=== PATIENT | male | born 1955 ===

== ENCOUNTER 2018-04-14 19:28 | Inpatient (IN) | payer MEDICARE, MEDICAID ==
[~2018-04-14] VITALS: Ht 190.5 cm; Wt 87.5 kg
--- NOTE | 2018-04-14 20:05 | NUR ---
Pt was transferred from [facility] for 5150. Pt complains of being depressed and wanting to hurt himself. Pt has hx of SI by cutting self x2. Pt has hx of ETOH abuse. Last drink was 12 hours ago. Pt has hx of ETOH withdrawal, sz. Pt stated that he usually takes Librium to prevent withdrawal. Made aware. Sz precautions in place. Wound and redness to coccyx, R second and middle toe noted. Pt alert, oriented x3. No sob noted. No s/sx of distress noted. Resp even and unlabored. Follows commands. Anxious. Call light within reach. Will cont to monitor. Addendum: 04/14/18 at 2108 by MIGUEL Pt plans to shoot himself.
[2018-04-14] MEDS ORDERED: IBUPROFEN 600 MG TABLET ONE (20:13)
[2018-04-14] MEDS ORDERED: LORAZEPAM 1 MG TABLET ONE (20:13)
[2018-04-14] MEDS ORDERED: IBUPROFEN 600 MG TABLET PO ONE (20:15)
[2018-04-14] MEDS ORDERED: LORAZEPAM 0.5 MG TABLET PO ONE (20:15)
[2018-04-14 20:23] LABS: BASOPHILS # (AUTO) 0.1 K/uL (0.0-8.0); BASOPHILS % (AUTO) 1.1 % (0.0-2.0); EOSINOPHILS # (AUTO) 0.2 K/uL (0.0-0.7); EOSINOPHILS % (AUTO) 3.7 % (0.0-7.0); HEMATOCRIT 36.8 % (36.7-47.1); HEMOGLOBIN 12.6 g/dL (12.5-16.3); LYMPHOCYTES # (AUTO) 1.3 K/uL (20.0-40.0); MEAN CORPUSCULAR HEMOGLOBIN 31.4 uug (23.8-33.4); MEAN CORPUSCULAR HGB CONC 34 g/dL (32.5-36.3); MEAN CORPUSCULAR VOLUME 92.1 fL (73.0-96.2); MONOCYTES # (AUTO) 0.6 K/uL (2.0-10.0); MONOCYTES % (AUTO) 11.1 % (0.0-11.0); NEUTROPHILS # (AUTO) 3.3 K/uL (1.8-8.9); NEUTROPHILS % (AUTO) 60.1 % (38.5-71.5); PLATELET COUNT (AUTO) 150 K/uL (152-348); WHITE BLOOD COUNT (AUTO) 5.4 K/uL (3.6-10.2)
[2018-04-14] MEDS ORDERED: GABA-534 PO (20:26)
[2018-04-14] MEDS ORDERED: DULO60CA45 PO (20:26)
[2018-04-14] MEDS ORDERED: LEVO25TA2 PO (20:26)
[2018-04-14] MEDS ORDERED: AMLO5TAB4 PO (20:26)
[2018-04-14 20:34] LABS: ALANINE AMINOTRANSFERASE 26 U/L (16-63); ALKALINE PHOSPHATASE 90 U/L (50-136); ASPARTATE AMINOTRANSFERASE 30 U/L (15-37); BILIRUBIN,DIRECT 0.3 mg/dL (0.0-0.2); BILIRUBIN,TOTAL 1.1 mg/dL (0.2-1.0); CARBON DIOXIDE 30 mmol/L (21-32); CHLORIDE 102 mmol/L (98-107); CREATININE 0.8 mg/dL (0.6-1.3); GLUCOSE 102 mg/dL (74-106); POTASSIUM 3.3 mmol/L (3.5-5.1)
[2018-04-14 20:38] LABS: ETHANOL < 3 MG/DL (0-0)
[2018-04-14 20:39] LABS: ACETAMINOPHEN < 2.0 ug/mL (10-30); UREA NITROGEN, BLOOD 7 mg/dL (7-18)
--- NOTE | 2018-04-14 21:07 | NUR ---
Pt is sleeping at this time. Will cont to monitor.
[2018-04-14] MEDS ORDERED: POTASSIUM CHLORIDE 10 MEQ TAB.PRT.SR PO ONE (21:30)
[2018-04-14] MEDS ORDERED: POTASSIUM CHLORIDE 20 MEQ TAB.PRT.SR ONE (21:38)
--- NOTE | 2018-04-14 21:58 | NUR ---
Attempted to call report. Receiving nurse will call back in 5 mins.
--- NOTE | 2018-04-14 22:30 | NUR ---
Report given LISBETH Beauchamp
--- NOTE | 2018-04-14 22:53 | NUR ---
Pt. admitted to psych , under care of Dr. Estrada Belongs List completed
[2018-04-14] MEDS ORDERED: MAG HYDROX/AL HYDROX/SIMETH 30 ML LIQUID UDC PO PRN (23:30)
[2018-04-14] MEDS ORDERED: LORAZEPAM 1 MG TABLET PO PRN (23:30)
[2018-04-14] MEDS ORDERED: ACETAMINOPHEN 325 MG TABLET PO PRN (23:30)
[2018-04-14] MEDS ORDERED: MAGNESIUM HYDROXIDE 30 ML LIQUID UDC PO PRN (23:30)
--- NOTE | 2018-04-14 23:30 | NUR ---
Admission Note: 62 y.o. male bib ER staff to MHU via allen from [facility]. Pt admitted on a 5150 for DTS. According to the Hold, Pt has a long history of PTSD, depression, and ETOH abuse. Pt is depressed with hopelessness, worthlessness, poor sleep, energy, and concentration. Pt still having regular trauma-related nightmares and flash backs. Endorses 2 previous suicide attempts by cutting himself. Pt has a current plan to steal a friend's gun and shooting himself. Upon face to face assessment, Pt agrees with, and also appears to reflect what is written on the Hold. Advisement and Patient Rights handbook given to Pt. A+Ox3 upon admission to MHU. Pt reports current suicidal thoughts and with the above-stated plan due to "unmanageable anxiety and depression." Reports a 30 year h/o ETOH abuse, drinking "3-5 quarts" daily, with 2-6 month episodes of sobriety. States he was kicked out of [employer] for "falling off the wagon," and became increasingly depressed and suicidal after living on the streets for "2 or 3 weeks." Pt states he has no family, no social support, and has very little money. Reports 10/10 anxiety, and states he feels helpless and hopeless. Exhibits blunted affect, garbled speech, and is circumstantial in thought process. Denies AH/VH. Reports smoking 5-6 cigarettes daily, nicotine patch ordered. Belongings inventoried and placed in unit locker. Pt cooperative with admission process, signed all paperwork. Skin assessment completed with RN and one male staff present. Abrasions noted to 2nd and 3rd (R) toes, (R) knee scab, and open sacral wound-photos taken and placed in chart, wound consult ordered. Pt oriented to the unit and his room, educated on unit rules and expectations, safety emphasized. Dr Estrada and Sunshine notified of admission, orders received, medications to be reconciled. In no acute physical distress.
[2018-04-15 07:30] VITALS: BP 165/85
[2018-04-15] MEDS: NICOTINE 7 MG/24HR PATCH TD SCH (11:29)
[2018-04-15] MEDS: DULOXETINE 30 MG CAPSULE.DR PO SCH ×2 (13:42→17:15)
[2018-04-15] MEDS: GABAPENTIN 300 MG CAPSULE PO SCH ×2 (13:42→17:15)
[2018-04-15 15:40] VITALS: BP 154/58
--- NOTE | 2018-04-15 18:22 | NUR ---
PATIENT IN ROOM MOST OF SHIFT AND SLEEPING AETING MEALS PARTIALLY, NO BEHAVIOR PROBLEMS, PATIENT C/O NAUSEA MEDICATED WITH MAALOZ 30CC WITH GOOD RESULTS AFTER , DENIED S.I CONTINUE TO MONITOR FOR SAFETY
[2018-04-15 19:30] VITALS: BP 145/68
--- NOTE | 2018-04-15 19:35 | NUR ---
RECEIVED PATIENT IN HIS ROOM, IN BED ASLEEP BUT EASILY AROUSABLE. HE IS NOTED A/O X 4. HE SI ABLE TO AMBULATE WITH STEADY GAIT AND ABLE TO MAKE HIS NEEDS KNOWN. UPON INTERVIEW, PATIENT REPORTED THAT HE CONTINUE HAVING SI WITH A PLAN TO STEAL FRIEND'S GUN AND SHOT SELF. PATIENT DENIES OWNING A GUN HIMSELF. PATIENT NOTED WITH LOW MOOD, WITHDRAWN, SAD FACE. PT ABLE VERBALIZED FEELINGS AND ABLE TO CFS. PT WAS REASSURED AND REDIRECTED. SAFETY EMPHASIS, WILL CONTINUE TO MONITOR CLOSELY.
[2018-04-16] MEDS: LEVOTHYROXINE SODIUM 25 MCG TABLET PO SCH (06:18)
--- NOTE | 2018-04-16 06:45 | NUR ---
PATIENT SLEPT FOR APPROX 6.30HRS THROUGHOUT THE NIGHT. CONTINUE COMPLIANT WITH MEDICATION REGIMENT. NO S/S OF ETOH WITHDRAWN NOTED OR REPORTED. A RASH WAS NOTED IN HIS RIGHT ARM LATERAL ASPECT, NO SWELLING OR DISCHARGED NOTED. HE DENIED PAIN OR PRURITUS. WILL ENDORSE TO INCOMING SHIFT TO HAVE MD EVALUATED. WILL CONTINUE TO MONITOR.
[2018-04-16 07:30] VITALS: BP 156/82
[2018-04-16] MEDS: AMLODIPINE 5 MG TABLET PO SCH (08:00)
[2018-04-16] MEDS: GABAPENTIN 300 MG CAPSULE PO SCH ×3 (08:00→16:10)
[2018-04-16] MEDS: NICOTINE 7 MG/24HR PATCH TD SCH (08:02)
[2018-04-16] MEDS: DULOXETINE 30 MG CAPSULE.DR PO SCH (12:54)
[2018-04-16 16:00] VITALS: BP 130/76
[2018-04-16] MEDS: DULOXETINE 60 MG CAPSULE.DR PO SCH (16:10)
[2018-04-16 20:06] VITALS: BP 100/51
--- NOTE | 2018-04-17 05:55 | NUR ---
GPS:PATIENT SLEPT FOR APPROX 8HRS THROUGHOUT THE NIGHT. REMAIN COMPLIANT WITH MEDICATIONS. NO S/S OF ETOH WITHDRAWN NOTED OR REPORTED. DENIES PAIN OR DISCOMFORT AT THIS TIME.RESTING IN BED COMFORTABLY. WILL CONTINUE TO MONITOR.
[2018-04-17] MEDS: LEVOTHYROXINE SODIUM 25 MCG TABLET PO SCH (06:33)
[2018-04-17 07:30] VITALS: BP 149/80
[2018-04-17] MEDS: NICOTINE 7 MG/24HR PATCH TD SCH (09:00)
[2018-04-17] MEDS: AMLODIPINE 5 MG TABLET PO SCH (09:09)
[2018-04-17] MEDS: GABAPENTIN 300 MG CAPSULE PO SCH ×3 (09:09→17:29)
--- NOTE | 2018-04-17 12:09 | NUR ---
Initial Discharge Plan: Patient is currently homeless and has been for the past 10 years. Patient appears to be resourceful as he has knowledge of many shelters and resource programs. Patient was last staying at [facility] and would like to go back there if possible. Patient is open to other SNF placement if necessary. Patient has no family or friends to contact at this time. Patient has a long history of ETOH abuse and will need a brief substance abuse intervention. cannery worker will continue to assist patient with psychosocial needs while on unit and help plan a safe and proper discharge for patient when ready.
--- NOTE | 2018-04-17 12:21 | NUR ---
Firearms Report: residential support worker completed and submitted a [employer] Firearms Report for a 5150 DTS certification.
[2018-04-17] MEDS: DULOXETINE 30 MG CAPSULE.DR PO SCH (13:36)
--- NOTE | 2018-04-17 13:58 | NUR ---
WOUND CARE CONSULT: PT PRESENTS WITH SACRAL ESCHAR, PRESENT ON ADMISSION. RECOMMEND SURGICAL CONSULT. ALL SKIN PROTECTION MEASURES IN PLACE AND DISCUSSED WITH NURSING STAFF. WILL SEE PRN. PT IS AMBULATORY AND CONTINENT. IN AGREEMENT WITH PLAN OF CARE. Addendum: 04/17/18 at 1359 by LETHA ASCENCIO RN Amended: Links added.
[2018-04-17 15:04] VITALS: BP 131/88
[2018-04-17] MEDS: DULOXETINE 60 MG CAPSULE.DR PO SCH (17:29)
[2018-04-17 20:00] VITALS: BP 124/69
[2018-04-18] MEDS: LEVOTHYROXINE SODIUM 25 MCG TABLET PO SCH (06:40)
[2018-04-18 07:30] VITALS: BP 113/75
[2018-04-18] MEDS: NICOTINE 7 MG/24HR PATCH TD SCH (08:57)
[2018-04-18] MEDS: AMLODIPINE 5 MG TABLET PO SCH (08:57)
[2018-04-18] MEDS: GABAPENTIN 300 MG CAPSULE PO SCH ×3 (08:57→17:32)
[2018-04-18] MEDS: DULOXETINE 30 MG CAPSULE.DR PO SCH (13:26)
--- NOTE | 2018-04-18 14:49 | NUR ---
Discharge Planning Note: Patient has expressed interest in SNF placement. Per pt, he had been a resident at [facility] [[address] [place] [address]; ]. ALICIA placed call to Josué in admissions and left a message for return call. ALICIA also faxed inquiry to [facility] [[address] [place] [address] Attn: Jonah]. Awaiting response from facility. Addendum: 04/18/18 at 1559 by IGGY REVELES Received call back from Jonah at [facility] who stated that patient could not be accepted at this time due to bed unavailability. ALICIA faxed inquiry to [employer], radio communication coordinator (ph. [phone]; fax [phone]]. ALICIA will continue to follow-up to ensure safe and proper placement.
[2018-04-18 15:33] VITALS: BP 140/74
[2018-04-18] MEDS: DULOXETINE 60 MG CAPSULE.DR PO SCH (17:32)
[2018-04-18 19:30] VITALS: BP 127/74
--- NOTE | 2018-04-19 03:51 | NUR ---
Received pt to care, pt sitting in the TV room, pt was sarcastic when I assessed his mental state giving absurd answers, pt later answered my questions and knew who the president was, what hospital he was in and the date. Pt unkempt, clear speech, pleasant, pt req a snack which was provided. Pt came out of his room at 3:50am stating that he had pain 7/10 and tingling sensation in L his arm and fingers. Pt denies chest pain, pt req Ibuprofen but Tylenol is prescribed for pain. Pt refused tylenol stating that his "liver is not that good". I offered patient ativan, pt agreed. Pt took med and went back to bed. I will endorse to day shift to ask doctor if different pain med can be prescribed.
[2018-04-19] MEDS: LEVOTHYROXINE SODIUM 25 MCG TABLET PO SCH (06:45)
[2018-04-19 07:30] VITALS: BP 156/87
[2018-04-19 07:33] LABS: EOSINOPHILS # (AUTO) 0.3 K/uL (0.0-0.7); EOSINOPHILS % (AUTO) 5.4 % (0.0-7.0); HEMATOCRIT 38.3 % (36.7-47.1); HEMOGLOBIN 12.8 g/dL (12.5-16.3); LYMPHOCYTES # (AUTO) 1.3 K/uL (20.0-40.0); LYMPHOCYTES % (AUTO) 27.4 % (20.5-51.5); MEAN CORPUSCULAR HEMOGLOBIN 31.3 uug (23.8-33.4); MEAN CORPUSCULAR HGB CONC 34 g/dL (32.5-36.3); MEAN CORPUSCULAR VOLUME 93.4 fL (73.0-96.2); MONOCYTES # (AUTO) 0.3 K/uL (2.0-10.0); MONOCYTES % (AUTO) 6.7 % (0.0-11.0); NEUTROPHILS # (AUTO) 2.8 K/uL (1.8-8.9); NEUTROPHILS % (AUTO) 59.5 % (38.5-71.5); PLATELET COUNT (AUTO) 116 K/uL (152-348); WHITE BLOOD COUNT (AUTO) 4.8 K/uL (3.6-10.2)
[2018-04-19 07:39] LABS: CREATININE 0.7 mg/dL (0.6-1.3); MAGNESIUM 1.9 mg/dL (1.8-2.4); PHOSPHOROUS 3.8 mg/dL (2.5-4.9); POTASSIUM 3.8 mmol/L (3.5-5.1)
[2018-04-19 08:26] LABS: THYROID STIMULATING HORMONE 0.798 mIU/mL (0.358-3.740)
[2018-04-19] MEDS: AMLODIPINE 5 MG TABLET PO SCH ×2 (08:51→20:14)
[2018-04-19] MEDS: GABAPENTIN 300 MG CAPSULE PO SCH ×3 (08:51→17:01)
[2018-04-19] MEDS: NICOTINE 7 MG/24HR PATCH TD SCH ×2 (08:52→08:55)
--- NOTE | 2018-04-19 12:04 | NUR ---
Discharge Planning: fish hatchery worker followed up with Sandie [[phone]], tour coordinator, at [facility] [[address] [place] [address]; ] who stated that they would be willing to accept patient back to facility upon review of packet. fish hatchery worker faxed [[phone]] packet to facility and is currently awaiting response. Addendum: 04/20/18 at 1520 by PEREZ VARGAS Additional Information: Patient has been accepted to [facility] and social media designer received confirmation of this by Sandie, tour coordinator.. This is patient's first choice for placement and will discharge to facility when ready.
[2018-04-19] MEDS ORDERED: DULOXETINE 30 MG CAPSULE.DR PO SCH (13:00)
[2018-04-19] MEDS: DULOXETINE 60 MG CAPSULE.DR PO SCH ×2 (13:32→17:02)
--- NOTE | 2018-04-19 16:00 | NUR ---
Activity Group Note: Patients engaged in listening to music of their choice while coloring a picture print available to them. Patients were asked to engage with their peers to discuss the music or their pictures. Subjective: "I don't want to color...Do you have any crossword puzzles?" Objective: Patient seemed apprehensive about participating in the group, as he asked to participate in a different activity. Patient did not seem to engage with his peers, but was present throughout the majority of the group. Patient completed his crossword puzzle and left the group. Assessment: Patient needs encouragement in socializing with his peers. Plan: Encourage group attendance as scheduled. Sealer Sander will continue to provide encouragement and support in helping the patient engage in group activities.
[2018-04-19 16:04] VITALS: BP 11/74
--- NOTE | 2018-04-19 18:28 | NUR ---
no behavior problems or complaints affect flazt yet pleasant, in room most of am out of room after noon. patient showered and dressing change done skin red without drainage
[2018-04-19 21:36] VITALS: BP 110/68
[2018-04-19] MEDS: TEMAZEPAM 15 MG CAPSULE PO PRN (22:00)
[2018-04-20 02:47] LABS: *BILIRUBIN,URIN NEGATIVE (NEGATIVE); *BLOOD, URINE NEGATIVE (NEGATIVE); *CLARITY,URINE SLIGHTLY CLOUDY (CLEAR); *COLOR,URINE YELLOW (YELLOW); *KETONES,URINE TRACE (NEGATIVE); *PROTEIN,URINE 1+ (NEGATIVE); LEUKOCYTE ESTERASE ,URINE TRACE (NEGATIVE); NITRITE, URINE NEGATIVE (NEGATIVE); PH,URINE 6.5 (5.0-8.0); UGLUCOSE NEGATIVE (NEGATIVE)
[2018-04-20 03:15] LABS: BACTERIA,URINE NONE SEEN /HPF (NONE SEEN); MUCUS,URINE MODERATE /LPF (0-FEW); RBC,URINE 0-3 /HPF (0-3); SQUAMOUS EPITHELIAL CELL,UR FEW /HPF (NONE SEEN)
[2018-04-20] MEDS: LEVOTHYROXINE SODIUM 25 MCG TABLET PO SCH (06:22)
[2018-04-20 07:30] VITALS: BP 125/79
[2018-04-20] MEDS: GABAPENTIN 300 MG CAPSULE PO SCH ×3 (08:40→17:36)
[2018-04-20] MEDS: AMLODIPINE 5 MG TABLET PO SCH ×2 (08:43→20:33)
[2018-04-20] MEDS: NICOTINE 7 MG/24HR PATCH TD SCH (08:46)
[2018-04-20] MEDS: DULOXETINE 60 MG CAPSULE.DR PO SCH ×2 (13:22→17:37)
[2018-04-20 16:08] VITALS: BP 106/67
[2018-04-20 19:49] VITALS: BP 108/64
--- NOTE | 2018-04-20 20:00 | NUR ---
RECEIVED PATIENT IN THE DAY ROOM WATCHING TV AND TALKING WITH WITH ANOTHER CLIENT. HE IS NOTED A/O X 3. HE IS ABLE TO AMBULATE WITH STEADY. HE IS NOTED PLEASANT AND COOPERATIVE. UPON INTERVIEW, HE DENIES SI, DENIES HI, VH/VH. HE STATED, "I AM FEELING MUCH BETTER". PT IS ABLE TO CFS. SAFETY WAS EMPHASIS, ENCOURAGE TO VERBALIZED FEELINGS. WILL CONTINUE TO MONITOR.
[2018-04-20] MEDS: NYSTATIN POWDER 15 GM BOTTLE TOP SCH (21:12)
[2018-04-20] MEDS: TEMAZEPAM 15 MG CAPSULE PO PRN (22:14)
[2018-04-21] MEDS: LEVOTHYROXINE SODIUM 25 MCG TABLET PO SCH (06:35)
[2018-04-21 07:30] VITALS: BP 127/79
[2018-04-21 08:15] VITALS: BP 127/79
[2018-04-21] MEDS: AMLODIPINE 5 MG TABLET PO SCH (08:15)
[2018-04-21] MEDS: GABAPENTIN 300 MG CAPSULE PO SCH ×2 (08:15→12:53)
[2018-04-21] MEDS: NICOTINE 7 MG/24HR PATCH TD SCH (08:20)
[2018-04-21] MEDS: NYSTATIN POWDER 15 GM BOTTLE TOP SCH (08:21)
--- NOTE | 2018-04-21 10:16 | NUR ---
Discharge Note: Patient will be discharged to [facility] [[address] [place] [address]; ] and transportation will be provided by ambulance. Please arrange ambulance transportation for this patient. Confirmation of acceptance at facility was provided by Sandie [[phone]], clinical unit coordinator, at facility. Patient is alert and oriented x3 and denies any SI/HI. Patient was briefed on discharge and aware and agreeable to plan. Patient will follow-up with Dr. Cho (timber poisoner) and Dr. Loco (psychiatrist). Patient was given outpatient mental health resources including [facility] [facility] Crisis Line [ ], yMrtle Astudillo [ ], and National Suicide Prevention Lifeline [ ]. Patient was provided with a brief substance abuse intervention and provided with outpatient resources including [facility] [[address] [place] [address] Tel. (intake at 9am on Weekdays)], [facility] [[address] [place] [address] Tel. ], and [facility] [ ; Email: [facility] ], and Substance Abuse and Mental Health Services Administration (SAMHSA) National Helpline [6-011-688-HELP (2788)]. Patient has completed and signed the homeless patient waiver form.
[2018-04-21] MEDS: DULOXETINE 60 MG CAPSULE.DR PO SCH (12:53)
--- NOTE | 2018-04-21 13:29 | NUR ---
Patient Discharged and picked by ambulance to [facility] via rney. Educated and Discharged instructions given to patient and all of his belongings.
== END 2018-04-21 13:30 | DRG 885 ==
LOC: ER 19:30 → GPS 22:16
PROVIDERS: ADMIT Psychiatry & Neurology Psychosomatic Medicine; ATTEND Nurse Practitioner Acute Care
DX: F33.2 Major depressive disorder, recurrent severe without psychotic features (principal); R17 Unspecified jaundice; N39.0 Urinary tract infection, site not specified; Z59.0 Homelessness; Z91.5 Personal history of self-harm; E03.9 Hypothyroidism, unspecified; I25.10 Atherosclerotic heart disease of native coronary artery without angina pectoris; I48.0 Paroxysmal atrial fibrillation; F17.210 Nicotine dependence, cigarettes, uncomplicated; Z79.899 Other long term (current) drug therapy; F10.10 Alcohol abuse, uncomplicated; Y90.9 Presence of alcohol in blood, level not specified; Z91.14 Patient's other noncompliance with medication regimen; I25.2 Old myocardial infarction; E87.6 Hypokalemia; D69.6 Thrombocytopenia, unspecified; B36.8 Other specified superficial mycoses; R23.4 Changes in skin texture; Z87.81 Personal history of (healed) traumatic fracture; I10 Essential (primary) hypertension; F15.10 Other stimulant abuse, uncomplicated; F14.10 Cocaine abuse, uncomplicated; F43.10 Post-traumatic stress disorder, unspecified
CPT/HCPCS: 36415; 71045; 83735; 84100; 84443; 85025; 87077; 87086; 93005; A4663; A9150; G0480; G0480-TC

== ENCOUNTER 2020-06-25 14:19 | Inpatient (IN) | payer MEDICARE, OTHER ==
[~2020-06-25] VITALS: Ht 190.5 cm; Wt 85.3 kg
[~2020-06-25 14:19] MED LIST: AMLO5TAB4 PO; LEVO25TA2 PO
[2020-06-25 19:45] VITALS: BP 133/80
[2020-06-25] MEDS ORDERED: TEMAZEPAM 7.5 MG CAPSULE PO PRN (21:00)
[2020-06-25] MEDS ORDERED: ACETAMINOPHEN 325 MG TABLET PO PRN (21:00)
[2020-06-25] MEDS ORDERED: MAG HYDROX/AL HYDROX/SIMETH 30 ML LIQUID UDC PO PRN (21:00)
[2020-06-25] MEDS ORDERED: MAGNESIUM HYDROXIDE 30 ML LIQUID UDC PO PRN (21:00)
[2020-06-25] MEDS ORDERED: BLOOD SUGAR DIAGNOSTIC 1 EACH STRIP VI ONE (21:00)
[2020-06-26] MEDS ORDERED: DULO30CA2 PO (00:47)
[2020-06-26] MEDS ORDERED: TRAZ-257 PO (00:47)
[2020-06-26] MEDS ORDERED: DICL1KIT14 TP (00:47)
[2020-06-26] MEDS ORDERED: GABA800T11 PO (00:47)
[2020-06-26] MEDS ORDERED: IBUP-1957 PO (00:47)
[2020-06-26] MEDS ORDERED: FOLI0.8T PO (00:47)
[2020-06-26] MEDS ORDERED: GABA-536 PO (00:47)
[2020-06-26] MEDS ORDERED: TAMS-3 PO (00:47)
[2020-06-26] MEDS ORDERED: NAPR-1009 PO (00:47)
[2020-06-26] MEDS ORDERED: FAMO20TA8 PO (00:47)
[2020-06-26 07:30] VITALS: BP 148/80
--- NOTE | 2020-06-26 07:55 | NUR ---
GPS/NSG- Admitting Note: Patient is a 65 yr old male who self reported a history of bi-polar disorder. Per medical record patient has been struggling in the past recent weeks with lack of medication supply reported mood to have worsen as a consequence. Patient is also homeless and verbalized he rather be and kill himself than be without a home. Dr. Estrada and [facility] physician continuous pillowcase cutter aware. Belongings logged, contraband removed. Patient rights handbook provided. Plan of care initiated. Will monitor for safety.
[2020-06-26] MEDS: NICOTINE 14 MG/24HR PATCH TD SCH (08:36)
--- NOTE | 2020-06-26 10:22 | NUR ---
Initial Discharge Plan: Patient is currently homeless and would want a SNF. Patient does not have any supportive contact at this moment. This SW will work with the MD and treatment team to help coordinate proper discharge plan.
--- NOTE | 2020-06-26 10:23 | NUR ---
Firearms Report: Bone Char Kiln Operator completed and submitted a [employer] firearms report for 5150 grave disability certification. A copy of report has been placed in patient chart.
--- NOTE | 2020-06-26 10:23 | NUR ---
SW Family Contact: Patient does not have any support at this moment.
--- NOTE | 2020-06-26 10:24 | NUR ---
SW Substance Abuse Intervention: Patient was provided with a brief substance abuse intervention and referred to [facility] ([phone]), [facility] ([phone]), and [facility] ([phone]).
[2020-06-26 10:27] LABS: BILIRUBIN,TOTAL 0.6 mg/dL (0.2-1.0); CREATININE 0.8 mg/dL (0.6-1.3); POTASSIUM 3.1 mmol/L (3.5-5.1)
[2020-06-26 16:00] VITALS: BP 161/99
[2020-06-26] MEDS ORDERED: POTASSIUM CHLORIDE 20 MEQ TAB.PRT.SR PO ONE (16:00)
[2020-06-26] MEDS ORDERED: NAPROXEN 500 MG TABLET PO PRN (16:00)
[2020-06-26] MEDS: FAMOTIDINE 20 MG TABLET PO SCH (16:57)
[2020-06-26] MEDS: GABAPENTIN 400 MG CAPSULE PO SCH (16:57)
[2020-06-26] MEDS ORDERED: DULOXETINE 20 MG CAPSULE.DR PO SCH (17:00)
[2020-06-26 20:00] VITALS: BP 152/77
[2020-06-26] MEDS: DOCUSATE SODIUM 100 MG CAPSULE PO SCH (20:01)
[2020-06-26] MEDS: TAMSULOSIN HCL 0.4 MG CAP.SR.24H PO SCH (20:01)
[2020-06-26] MEDS: HYDROCODONE/APAP 5-325MG TABLET PO PRN (20:55)
--- NOTE | 2020-06-26 21:17 | NUR ---
Received pt resting in bed. No acute distress noted. C/o pain on left hip, prn pain med and other due med given as ordered. Pt went to day room, watched tv. Pt able to wheel himself on his wheelchair. Denies SI. Safety measures maintained. Will continue to monitor.
[2020-06-27] MEDS: LORAZEPAM 0.5 MG TABLET PO PRN (03:05)
[2020-06-27 07:30] VITALS: BP 160/92
[2020-06-27] MEDS: FAMOTIDINE 20 MG TABLET PO SCH ×2 (08:01→17:02)
[2020-06-27] MEDS: AMLODIPINE 5 MG TABLET PO SCH (08:01)
[2020-06-27] MEDS: FOLIC ACID 1 MG TABLET PO SCH (08:01)
[2020-06-27] MEDS: LEVOTHYROXINE SODIUM 25 MCG TABLET PO SCH (08:01)
[2020-06-27] MEDS: GABAPENTIN 400 MG CAPSULE PO SCH ×3 (08:02→17:02)
[2020-06-27] MEDS: HYDROCODONE/APAP 5-325MG TABLET PO PRN ×2 (08:02→17:18)
[2020-06-27] MEDS: NICOTINE 14 MG/24HR PATCH TD SCH (08:02)
[2020-06-27 08:21] LABS: BASOPHILS % (AUTO) 0.8 % (0.0-2.0); EOSINOPHILS # (AUTO) 0.1 K/uL (0.0-0.7); EOSINOPHILS % (AUTO) 2.7 % (0.0-7.0); HEMATOCRIT 31.1 % (36.7-47.1); HEMOGLOBIN 10.2 g/dL (12.5-16.3); LYMPHOCYTES # (AUTO) 0.7 K/uL (20.0-40.0); LYMPHOCYTES % (AUTO) 18.6 % (20.5-51.5); MEAN CORPUSCULAR HEMOGLOBIN 29.6 uug (23.8-33.4); MEAN CORPUSCULAR HGB CONC 33 g/dL (32.5-36.3); MEAN CORPUSCULAR VOLUME 90.3 fL (73.0-96.2); MONOCYTES # (AUTO) 0.4 K/uL (2.0-10.0); MONOCYTES % (AUTO) 10.5 % (0.0-11.0); NEUTROPHILS # (AUTO) 2.6 K/uL (1.8-8.9); NEUTROPHILS % (AUTO) 67.4 % (38.5-71.5); PLATELET COUNT (AUTO) 122 K/uL (152-348); RED BLOOD CELL COUNT(AUTO) 3.45 MIL/uL (4.06-5.63); WHITE BLOOD COUNT (AUTO) 3.9 K/uL (3.6-10.2)
[2020-06-27 08:33] LABS: BILIRUBIN,TOTAL 0.6 mg/dL (0.2-1.0); CREATININE 0.9 mg/dL (0.6-1.3); POTASSIUM 3.7 mmol/L (3.5-5.1); TOTAL PROTEIN, SERUM 7.4 g/dL (6.4-8.2)
[2020-06-27 16:00] VITALS: BP 160/85
[2020-06-27] MEDS ORDERED: DULOXETINE 30 MG CAPSULE.DR PO SCH (17:00)
[2020-06-27 20:17] VITALS: BP 160/88
[2020-06-27] MEDS: TAMSULOSIN HCL 0.4 MG CAP.SR.24H PO SCH (21:40)
[2020-06-27] MEDS: DOCUSATE SODIUM 100 MG CAPSULE PO SCH (21:40)
[2020-06-27] MEDS: GENTAMICIN SULFATE OPHT DROP 5 ML BOTTLE EACHEYE SCH (21:45)
[2020-06-27] MEDS ORDERED: diphenhydrAMINE 25 MG CAP PO PRN (21:45)
--- NOTE | 2020-06-28 05:40 | NUR ---
GPS: Patient remain calm and cooperative. uses w/c to move around in the unit. no agitation noted. resting in bed comfortably. continue plan of care.
--- NOTE | 2020-06-28 05:52 | NUR ---
slept 6.15 hrs through the night.
[2020-06-28 07:30] VITALS: BP 160/70
[2020-06-28] MEDS: FOLIC ACID 1 MG TABLET PO SCH (08:22)
[2020-06-28] MEDS: AMLODIPINE 5 MG TABLET PO SCH (08:22)
[2020-06-28] MEDS: GABAPENTIN 400 MG CAPSULE PO SCH ×3 (08:22→16:53)
[2020-06-28] MEDS: FAMOTIDINE 20 MG TABLET PO SCH ×2 (08:22→16:53)
[2020-06-28] MEDS: LEVOTHYROXINE SODIUM 25 MCG TABLET PO SCH (08:24)
[2020-06-28] MEDS: NICOTINE 14 MG/24HR PATCH TD SCH (08:29)
[2020-06-28] MEDS: GENTAMICIN SULFATE OPHT DROP 5 ML BOTTLE EACHEYE SCH ×5 (09:35→21:31)
[2020-06-28] MEDS: HYDROCODONE/APAP 5-325MG TABLET PO PRN (12:48)
[2020-06-28] MEDS ORDERED: OLANZAPINE 2.5 MG TABLET PO PRN (14:30)
[2020-06-28] MEDS: OLANZAPINE 5 MG TABLET PO SCH (15:42)
[2020-06-28 16:42] VITALS: BP 118/57
[2020-06-28 20:00] VITALS: BP 117/59
--- NOTE | 2020-06-28 20:00 | NUR ---
received patient in his room in bed. he is noted sleeping but able to awake when with light touch. V/S stable. pt in no distress. safety and fall precaution in place. Will continue to monitor.
[2020-06-28] MEDS: OLANZAPINE 2.5 MG TABLET PO SCH ×2 (21:00→21:31)
[2020-06-28] MEDS: DOCUSATE SODIUM 100 MG CAPSULE PO SCH ×2 (21:00→21:31)
[2020-06-28] MEDS: TAMSULOSIN HCL 0.4 MG CAP.SR.24H PO SCH ×2 (21:00→21:31)
--- NOTE | 2020-06-28 22:30 | NUR ---
Patient noted sleeping. Unable to take QHS medications. V/S stable. pt in no distress. Will continue to monitor.
[2020-06-29 07:30] VITALS: BP 144/87
[2020-06-29] MEDS: FAMOTIDINE 20 MG TABLET PO SCH ×2 (08:14→16:10)
[2020-06-29] MEDS: AMLODIPINE 5 MG TABLET PO SCH (08:14)
[2020-06-29] MEDS: GENTAMICIN SULFATE OPHT DROP 5 ML BOTTLE EACHEYE SCH ×4 (08:14→20:18)
[2020-06-29] MEDS: OLANZAPINE 5 MG TABLET PO SCH (08:14)
[2020-06-29] MEDS: GABAPENTIN 400 MG CAPSULE PO SCH ×3 (08:15→16:10)
[2020-06-29] MEDS: FOLIC ACID 1 MG TABLET PO SCH (08:15)
[2020-06-29] MEDS: HYDROCODONE/APAP 5-325MG TABLET PO PRN ×2 (08:15→20:17)
[2020-06-29] MEDS: LEVOTHYROXINE SODIUM 25 MCG TABLET PO SCH (08:15)
[2020-06-29] MEDS: NICOTINE 14 MG/24HR PATCH TD SCH (08:16)
[2020-06-29 16:00] VITALS: BP 143/82
[2020-06-29 20:00] VITALS: BP 120/61
[2020-06-29] MEDS: TAMSULOSIN HCL 0.4 MG CAP.SR.24H PO SCH (20:17)
[2020-06-29] MEDS: OLANZAPINE 2.5 MG TABLET PO SCH (20:17)
[2020-06-29] MEDS: DOCUSATE SODIUM 100 MG CAPSULE PO SCH (20:23)
[2020-06-30 07:30] VITALS: BP 148/80
[2020-06-30] MEDS: FAMOTIDINE 20 MG TABLET PO SCH ×2 (08:15→16:24)
[2020-06-30] MEDS: AMLODIPINE 5 MG TABLET PO SCH (08:15)
[2020-06-30] MEDS: FOLIC ACID 1 MG TABLET PO SCH (08:15)
[2020-06-30] MEDS: HYDROCODONE/APAP 5-325MG TABLET PO PRN ×2 (08:15→15:43)
[2020-06-30] MEDS: OLANZAPINE 5 MG TABLET PO SCH (08:15)
[2020-06-30] MEDS: NICOTINE 14 MG/24HR PATCH TD SCH (08:16)
[2020-06-30] MEDS: LEVOTHYROXINE SODIUM 25 MCG TABLET PO SCH (08:16)
[2020-06-30] MEDS: GENTAMICIN SULFATE OPHT DROP 5 ML BOTTLE EACHEYE SCH ×4 (08:16→20:29)
[2020-06-30] MEDS: GABAPENTIN 400 MG CAPSULE PO SCH ×3 (08:16→16:24)
[2020-06-30] MEDS: LORAZEPAM 0.5 MG TABLET PO PRN (11:49)
--- NOTE | 2020-06-30 11:57 | NUR ---
SNF Referral: This SW sent [place] mosie ([phone]) clinical review for placement option at [facility]. This SW sent [facility] psychiatric notes, progress notes, and medications.
--- NOTE | 2020-06-30 15:01 | NUR ---
SNF Referral: ALICIA sent referral to Janeth moise from to [facility] ([phone]) for placement and will contact this ALICIA if pt is accepted or not. Addendum: 07/01/20 at 1154 by ZACH FRANCISCO Patient did not get accepted to facility.
--- NOTE | 2020-06-30 15:01 | NUR ---
SNF Contact: This SW sent Ca manager editorial ([phone]) who stated pt is not accepted to [facility] due to past suicide attempt.
[2020-06-30 15:43] VITALS: BP 121/65
[2020-06-30] MEDS: TAMSULOSIN HCL 0.4 MG CAP.SR.24H PO SCH (20:29)
[2020-06-30] MEDS: DOCUSATE SODIUM 100 MG CAPSULE PO SCH (20:29)
[2020-06-30] MEDS: OLANZAPINE 2.5 MG TABLET PO SCH (20:29)
[2020-06-30 20:31] VITALS: BP 120/66
[2020-07-01] MEDS: HYDROCODONE/APAP 5-325MG TABLET PO PRN ×2 (04:13→16:37)
[2020-07-01 07:30] VITALS: BP 135/85
[2020-07-01] MEDS: NICOTINE 14 MG/24HR PATCH TD SCH (08:17)
[2020-07-01] MEDS: LEVOTHYROXINE SODIUM 25 MCG TABLET PO SCH (08:17)
[2020-07-01] MEDS: GABAPENTIN 400 MG CAPSULE PO SCH ×3 (08:17→16:25)
[2020-07-01] MEDS: OLANZAPINE 5 MG TABLET PO SCH (08:17)
[2020-07-01] MEDS: FOLIC ACID 1 MG TABLET PO SCH (08:17)
[2020-07-01] MEDS: FAMOTIDINE 20 MG TABLET PO SCH ×2 (08:17→16:25)
[2020-07-01] MEDS: AMLODIPINE 5 MG TABLET PO SCH (08:17)
[2020-07-01] MEDS: GENTAMICIN SULFATE OPHT DROP 5 ML BOTTLE EACHEYE SCH ×4 (08:17→21:18)
--- NOTE | 2020-07-01 11:53 | NUR ---
ALICIA PC Hearing: Patient had probable cause hearing today and it was upheld for danger to self.
--- NOTE | 2020-07-01 12:51 | NUR ---
ALICIA SNF Referral: ALICIA faxed patient's referral packet to Emelia Giraldo ([phone]) for review for possible placement attention to [facility].
--- NOTE | 2020-07-01 15:28 | NUR ---
ALICIA [facility] Contact: ALICIA received a call from Meera clinical loading rack supervisor from [facility] ([phone]) to return her phone call. This ALICIA called back and left a voicemail to call this investment underwriter back.
[2020-07-01 16:00] VITALS: BP 136/84
[2020-07-01 20:08] VITALS: BP 111/72
[2020-07-01] MEDS: DOCUSATE SODIUM 100 MG CAPSULE PO SCH (21:19)
[2020-07-01] MEDS: TAMSULOSIN HCL 0.4 MG CAP.SR.24H PO SCH (21:19)
[2020-07-01] MEDS: OLANZAPINE 2.5 MG TABLET PO SCH (21:19)
[2020-07-02] MEDS: HYDROCODONE/APAP 5-325MG TABLET PO PRN ×3 (04:18→18:22)
[2020-07-02 07:30] VITALS: BP 116/62
[2020-07-02] MEDS: GENTAMICIN SULFATE OPHT DROP 5 ML BOTTLE EACHEYE SCH (08:56)
[2020-07-02] MEDS: FAMOTIDINE 20 MG TABLET PO SCH ×2 (08:57→17:24)
[2020-07-02] MEDS: GABAPENTIN 400 MG CAPSULE PO SCH ×3 (08:57→17:24)
[2020-07-02] MEDS: FOLIC ACID 1 MG TABLET PO SCH (08:57)
[2020-07-02] MEDS: OLANZAPINE 5 MG TABLET PO SCH (08:57)
[2020-07-02] MEDS: NICOTINE 14 MG/24HR PATCH TD SCH (08:58)
[2020-07-02] MEDS: AMLODIPINE 5 MG TABLET PO SCH (08:58)
[2020-07-02] MEDS: LEVOTHYROXINE SODIUM 25 MCG TABLET PO SCH (08:58)
[2020-07-02] MEDS ORDERED: HYDROCORTISONE 1% CREAM 30 GM TUBE TP ONE (11:45)
[2020-07-02] MEDS ORDERED: HYDROCORTISONE 1% CREAM 30 GM TUBE TP PRN (11:45)
--- NOTE | 2020-07-02 12:41 | NUR ---
DC NOTE: Patient will be discharged to group home [facility] [address] [place] [address] ([phone]) via ambulance at 4PM. Agriculture Sales Account Manager spoke with Mesha, Rose Grower at [facility] ([phone]) who confirmed that patient will be accepted at their facility today. Patient is alert and oriented x3. Patient is not able to plan for self-care at this time but is willing to accept care provided for him at the facility. Patient denies suicidal or homicidal ideation. Patient is aware and agreeable with discharge plans. Patient presents with appropriate mood and congruent affect. Patient will follow-up with Psychiatrist Dr. Estrada and Diplomatic Interpreter Dr. Cagle at [facility]. Patient does not have any family support. Patient was provided with a brief substance abuse intervention and referred to the following substance abuse programs: [facility] Substance Abuse Self-helpline ([phone]); [facility] [address] [place] [address] ([phone]); [facility] [address] [facility] [address] ([phone]); [facility] ([phone]); [facility] ([phone]); [facility] ([phone]); [facility] ([phone]). Homeless resources were provided and include 211 information line for shelters and homeless resources. A copy of all resources given to patient was also placed in the chart. Patient signed the homeless waiver upon discharge and a copy was placed in the chart.
[2020-07-02 16:00] VITALS: BP 122/60
--- NOTE | 2020-07-02 18:52 | NUR ---
Pt is being discharged to [facility] via ambulance. Pt is willing to go. VS are stable, pt denies s.i. and contracts for safety. Report was given to LISBETH Hi. No family to notify.
== END 2020-07-02 18:55 | DRG 885 ==
LOC: GPS 17:08
PROVIDERS: ADMIT Psychiatry & Neurology Psychosomatic Medicine; ATTEND Registered Nurse
DX: F31.4 Bipolar disorder, current episode depressed, severe, without psychotic features (principal); R45.851 Suicidal ideations; Z59.0 Homelessness; F43.10 Post-traumatic stress disorder, unspecified; F10.10 Alcohol abuse, uncomplicated; Y90.9 Presence of alcohol in blood, level not specified; Z86.69 Personal history of other diseases of the nervous system and sense organs; Z87.891 Personal history of nicotine dependence; G62.9 Polyneuropathy, unspecified; G89.29 Other chronic pain; I10 Essential (primary) hypertension; I25.10 Atherosclerotic heart disease of native coronary artery without angina pectoris; E03.9 Hypothyroidism, unspecified; I48.0 Paroxysmal atrial fibrillation; N40.0 Benign prostatic hyperplasia without lower urinary tract symptoms; H10.9 Unspecified conjunctivitis; D63.8 Anemia in other chronic diseases classified elsewhere; D69.6 Thrombocytopenia, unspecified; I25.2 Old myocardial infarction
CPT/HCPCS: 36415; 85025

== ENCOUNTER 2024-09-14 02:43 | Inpatient (IN) | payer MEDICARE, OTHER ==
[~2024-09-14] VITALS: Ht 190.5 cm; Wt 104.3 kg
[~2024-09-14 02:43] MED LIST changes: +DICL1KIT14 TP; +FAMO20TA8 PO; +FOLI0.8T3 PO; +GABA-536 PO; +GABA800T11 PO; +IBUP-1957 PO; +NAPR-1009 PO; +TAMS-3 PO
[2024-09-14] MEDS ORDERED: NITROFURANTOIN/NITROFURAN MAC 100 MG CAPSULE PO ONE (03:13)
[2024-09-14] MEDS: NITROFURANTOIN/NITROFURAN MAC 100 MG CAPSULE PO ONE (03:14)
[2024-09-14] MEDS ORDERED: IBUPROFEN 600 MG TABLET ONE ×2 (03:51→20:47)
[2024-09-14] MEDS: IBUPROFEN 600 MG TABLET PO ONE ×2 (03:54→20:50)
[2024-09-14] MEDS ORDERED: FINA5TAB11 PO (05:49)
[2024-09-14] MEDS ORDERED: GABA-532 PO (05:49)
[2024-09-14] MEDS ORDERED: LEVO50TA8 PO (05:49)
[2024-09-14] MEDS ORDERED: DULO30CA2 PO (05:49)
[2024-09-14] MEDS ORDERED: IBUP-1955 PO (05:49)
[2024-09-14] MEDS ORDERED: LOSA50TA39 PO (05:49)
[2024-09-14] MEDS ORDERED: LORAZEPAM 0.5 MG TABLET ONE ×2 (15:38→20:46)
[2024-09-14] MEDS: LORAZEPAM 0.5 MG TABLET PO ONE ×2 (15:38→20:50)
[2024-09-15] MEDS ORDERED: ONDANSETRON 4 MG/2 ML VIAL IV PRN (03:30)
[2024-09-15] MEDS ORDERED: MAGNESIUM HYDROXIDE 30 ML LIQUID UDC PO PRN (03:30)
[2024-09-15] MEDS ORDERED: ACETAMINOPHEN 325 MG TABLET PO PRN (03:30)
[2024-09-15] MEDS ORDERED: REMEDY ESSENTIAL ZINC PASTE 113 GM TP PRN (03:30)
[2024-09-15] MEDS: PANTOPRAZOLE SODIUM 40 MG TABLET.DR PO SCH (06:21)
[2024-09-15 07:00] VITALS: BP 175/85; TEMP 98.6; O2SAT 91
[2024-09-15 11:06] VITALS: BP 156/89; TEMP 98.2; O2SAT 97
[2024-09-15] MEDS: IBUPROFEN 600 MG TABLET PO PRN (11:52)
[2024-09-15] MEDS: CELECOXIB 100 MG CAPSULE PO SCH (11:53)
[2024-09-15] MEDS: LORAZEPAM 0.5 MG TABLET PO PRN (11:53)
[2024-09-15 15:36] VITALS: BP 157/82; TEMP 98.3; O2SAT 96
[2024-09-15] MEDS: CEphaleXIN 500 MG CAPSULE PO SCH (16:33)
[2024-09-15 19:00] VITALS: BP 120/83; TEMP 97.6; O2SAT 97
[2024-09-15] MEDS: ZOLPIDEM 5 MG TABLET PO PRN (21:36)
[2024-09-16] MEDS: hydrALAZINE HCL 25 MG TABLET PO PRN (04:44)
[2024-09-16 06:49] VITALS: BP 170/84; TEMP 98; O2SAT 97
[2024-09-16 07:12] LABS: BASOPHILS % (AUTO) 0.5 % (0.0-2.0); EOSINOPHILS # (AUTO) 0.1 K/uL (0.0-0.7); EOSINOPHILS % (AUTO) 1.8 % (0.0-7.0); HEMATOCRIT 36.3 % (36.7-47.1); HEMOGLOBIN 12.2 g/dL (12.5-16.3); LYMPHOCYTES # (AUTO) 0.9 K/uL (0.8-4.8); LYMPHOCYTES % (AUTO) 18.7 % (20.5-51.5); MEAN CORPUSCULAR HGB CONC 34 g/dL (32.5-36.3); MEAN CORPUSCULAR VOLUME 86.6 fL (73.0-96.2); MONOCYTES # (AUTO) 0.4 K/uL (0.1-1.30); MONOCYTES % (AUTO) 7.7 % (0.0-11.0); NEUTROPHILS # (AUTO) 3.6 K/uL (1.8-8.9); NEUTROPHILS % (AUTO) 71.3 % (38.5-71.5); PLATELET COUNT (AUTO) 132 K/uL (152-348); RED BLOOD CELL COUNT(AUTO) 4.19 MIL/uL (4.06-5.63); RED CELL DISTRIBUTION WIDTH 16.1 % (12.1-16.2); WHITE BLOOD COUNT (AUTO) 5.1 K/uL (3.6-10.2)
[2024-09-16 07:30] LABS: CALCIUM 8.5 mg/dL (8.5-10.1); CREATININE 0.9 mg/dL (0.6-1.3); DIFFERENTIAL COMMENT 1; MAGNESIUM 1.9 mg/dL (1.8-2.4); POTASSIUM 3.9 mmol/L (3.5-5.1)
[2024-09-16 11:03] VITALS: BP 139/82; TEMP 97.6; O2SAT 100
[2024-09-16] MEDS ORDERED: IBUPROFEN 600 MG TABLET PO PRN (14:00)
[2024-09-16] MEDS ORDERED: PANT40TA49 PO (14:35)
[2024-09-16] MEDS ORDERED: CELE100C PO (14:35)
[2024-09-16] MEDS ORDERED: KETO15CR2 TP (14:35)
[2024-09-16] MEDS ORDERED: GABA300C PO (14:35)
[2024-09-16] MEDS ORDERED: ZOLP5TAB2 PO (14:35)
[2024-09-16] MEDS ORDERED: CEPH500C2 PO (14:35)
[2024-09-16 15:08] VITALS: TEMP 98.2; O2SAT 96
[2024-09-16] MEDS: GABAPENTIN 300 MG CAPSULE PO SCH (17:06)
[2024-09-16] MEDS: KETOCONAZOLE 2% CREAM 30 GM TUBE TP SCH (17:43)
[2024-09-16 19:00] VITALS: BP 147/84; TEMP 97.7; O2SAT 98
[2024-09-16] MEDS: ZOLPIDEM 5 MG TABLET PO PRN (21:15)
[2024-09-17 05:38] VITALS: BP 142/98; TEMP 98; O2SAT 98
[2024-09-17] MEDS: LEVOTHYROXINE SODIUM 50 MCG TABLET PO SCH (06:04)
[2024-09-17 06:34] LABS: BASOPHILS % (AUTO) 0.7 % (0.0-2.0); EOSINOPHILS # (AUTO) 0.1 K/uL (0.0-0.7); EOSINOPHILS % (AUTO) 1.8 % (0.0-7.0); HEMATOCRIT 36.3 % (36.7-47.1); HEMOGLOBIN 12.1 g/dL (12.5-16.3); LYMPHOCYTES # (AUTO) 0.8 K/uL (0.8-4.8); LYMPHOCYTES % (AUTO) 14.6 % (20.5-51.5); MEAN CORPUSCULAR HGB CONC 33 g/dL (32.5-36.3); MEAN CORPUSCULAR VOLUME 87.2 fL (73.0-96.2); MONOCYTES # (AUTO) 0.4 K/uL (0.1-1.30); MONOCYTES % (AUTO) 7.7 % (0.0-11.0); NEUTROPHILS # (AUTO) 4.3 K/uL (1.8-8.9); NEUTROPHILS % (AUTO) 75.2 % (38.5-71.5); PLATELET COUNT (AUTO) 130 K/uL (152-348); RED BLOOD CELL COUNT(AUTO) 4.17 MIL/uL (4.06-5.63); RED CELL DISTRIBUTION WIDTH 16.2 % (12.1-16.2); WHITE BLOOD COUNT (AUTO) 5.7 K/uL (3.6-10.2)
[2024-09-17] MEDS ORDERED: LEVOTHYROXINE SODIUM 100 MCG TABLET PO SCH (07:00)
[2024-09-17 07:01] LABS: CALCIUM 8.7 mg/dL (8.5-10.1); CREATININE 1.1 mg/dL (0.6-1.3); PHOSPHOROUS 2.9 mg/dL (2.5-4.9)
[2024-09-17 07:16] LABS: DIFFERENTIAL COMMENT 1
[2024-09-17] MEDS: DULOXETINE 30 MG CAPSULE.DR PO SCH (08:17)
[2024-09-17] MEDS: LOSARTAN POTASSIUM 50 MG TABLET PO SCH (08:17)
[2024-09-17] MEDS: FINASTERIDE 5 MG TABLET PO SCH (08:17)
[2024-09-17] MEDS: GABAPENTIN 100 MG CAPSULE PO SCH (08:17)
[2024-09-17] MEDS ORDERED: LEVOTHYROXINE SODIUM 50 MCG TABLET PO SCH (09:00)
[2024-09-17 11:01] VITALS: BP 164/95; TEMP 97.6; O2SAT 100
== END 2024-09-17 14:40 | DRG 880 ==
LOC: ER 02:59 → MEDSURG3 09-15 04:51
PROVIDERS: ADMIT Student in an Organized Health Care Education/Training Program; ATTEND Nurse Practitioner Acute Care
DX: R45.851 Suicidal ideations (principal); T83.511A Infection and inflammatory reaction due to indwelling urethral catheter, initial encounter; N39.0 Urinary tract infection, site not specified; F32.A Depression, unspecified; Q54.1 Hypospadias, penile; Y73.8 Miscellaneous gastroenterology and urology devices associated with adverse incidents, not elsewhere classified; Y92.89 Other specified places as the place of occurrence of the external cause; N40.0 Benign prostatic hyperplasia without lower urinary tract symptoms; I25.2 Old myocardial infarction; Z87.440 Personal history of urinary (tract) infections; Z91.51 Personal history of suicidal behavior; Z81.8 Family history of other mental and behavioral disorders; M15.9 Polyosteoarthritis, unspecified; E03.9 Hypothyroidism, unspecified; I25.10 Atherosclerotic heart disease of native coronary artery without angina pectoris; I10 Essential (primary) hypertension; F09 Unspecified mental disorder due to known physiological condition; Z79.890 Hormone replacement therapy; Z79.899 Other long term (current) drug therapy
CPT/HCPCS: 36415; 83735; 84100; 85025; G0378